=== PATIENT | male | born 1985 ===

== ENCOUNTER 2021-06-10 22:56 | Emergency (ER) | payer BC, OTHER ==
[~2021-06-10] VITALS: Ht 182.9 cm; Wt 108.9 kg
[~2021-06-10 22:56] MED LIST: CYCL10TA9 PO; SULF-222 PO; TRAM50TA2 PO
--- NOTE | 2021-06-10 23:11 | ED General ---
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 HE FEELS LIKE HE CAN'T TAKE A DEEP BREATH STATES THIS HAS BEEN GOING ON FOR ABOUT A YEAR, AND IS WORSE WITH EXERCISE/ACTIV ITY AND GRADUALLY GETTING WORSE OVER TIME STATES IT HAS BEEN WORSE FOR THE LAST WEEK, AND WORSE TONIGHT--STATES "I THINK I GOT MYSELF WORKED UP ABOUT IT TONIGHT" NO CHEST PAIN OR PAIN WITH BREATHING NO COUGH NO FEVER/SWEATS/CHILLS NO SWELLING IN LEGS/FEET OR PAIN IN CALVES NO URI SYMPTOMS NO SORE THROAT NO LOSS OF TASTE OR SMELL NO GI SYMPTOMS HAS BEEN EATING AND DRINKING NORMALLY, AND VOIDING A NORMAL AMOUNT PT 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 ALSO HAS SAME WITH RIGHT ARM. PT STATES THIS HAS ALSO BEEN GOING ON FOR ABOUT A YEAR WELL--STATES IT HAPPENS "IF MY CIRCULATION IN MY ARM GETS BLOCKED FOR SOME REASON" ( SUCH SLEEPING ON HIS ARM, ETC. ) PT HAS NOT SOUGHT CARE AT ANY TIME FOR THESE PROBLEMS PT HAS NOT HAD COVID-19 VACCINE THERE HAVE BEEN MULTIPLE COVID-19 CASES AT [employer], BUT PT IS UNAWARE IF HE HAS ACTUALLY COME IN CONTACT WITH ANYONE WHO HAS BEEN ILL. PT DOES STATE THAT ALL DEPARTMENTS REPORT TO HIM DENIES ANY CHRONIC ILLNESSES, BUT NEVER GOES TO THE DR. NO RESPIRATORY PROBLEMS PT IS NON SMOKER ADDITIONALLY, PT GOT PULLED OVER BY THE POLICE ON HIS WAY HERE, WHICH HAS INCREASED HIS ANXIETY PCP: NONE Allergies and Home Medications Allergies Coded Allergies: No Known Drug Allergies (Unverified , 08/19/14) Home Medications Cyclobenzaprine Hcl 10 Mg Tablet, 1 EACH PO PRN PRN for PAIN, (Reported) Tramadol Hcl 50 Mg Tablet, 50 MG PO PRN PRN for PAIN, (Reported) Trimethoprim/Sulfamethoxazole 1 Ea Tablet, 1 EA PO BID, (Reported) Trimethoprim/Sulfamethoxazole 1 Ea Tablet, 2 EA PO BID Higher dose prescribed due to severity of infection Prescribed by: MARISA SORTO on 08/19/14 1110 Patient Home Medication List Home Medication List Reviewed: Yes Review of Systems Review of Systems Constitutional: No chills, No diaphoresis, No fever, No malaise, No weakness EENTM: no symptoms reported Respiratory: see HPI Cardiovascular: no symptoms reported Gastrointestinal: no symptoms reported Genitourinary: no symptoms reported Musculoskeletal: see HPI Skin: no symptoms reported Psychiatric/Neurological: Anxiety Hematologic/Lymphatic: No Symptoms Reported Immunological/Allergic: no symptoms reported Past Riucsej-Fwwjai-Nuzrwz Hx Patient Social History Tobacco Use?: No Substance use?: No Alcohol Use?: Yes Alcohol Frequency: Once in a while Past Medical History Surgeries: Yes Tonsillectomy Respiratory: No Cardiac: No Neurological: No Genitourinary: No Gastrointestinal: No Musculoskeletal: No Endocrine: No HEENT: Yes (S/P TONSILLECTOMY) Tonsilitis Cancer: No Psychosocial: No Integumentary: No Blood Disorders: No Family Medical History Patient reports no known family medical history. Physical Exam Vital Signs Vital Signs - First Documented 06/10/21 23:50 Temp 37.0 Pulse 90 Resp 22 B/P (MAP) 116/94 (101) Pulse Ox 99 O2 Delivery Room Air Capillary Refill : Height, Weight, BMI Height: 6'" Weight: 200lbs. oz. [id number]; BMI Method: General Appearance: No Apparent Distress, WD/WN, Anxious, Other (PT FREQUENTLY TAKING VERY DEEP BREATHS/HYPERVENTILATING. 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 Norm as Tested Skin: Normal Color (PT IS ), Warm/Dry; No Rash Progress/Results/Core Measures Suspected Sepsis SIRS Temperature: Pulse: Respiratory Rate: Laboratory Tests 06/11/21 00:12: White Blood Count 5.7 Blood Pressure / Mean: Laboratory Tests 06/11/21 00:12: Creatinine 0.90, INR Comment 1.0, Platelet Count 207, Total Bilirubin 0.4 Results/Orders Lab Results Laboratory Tests Test 06/10/21 22:35 06/10/21 23:44 06/11/21 00:12 Range/Units Influenza Type A (RT-PCR) Not Detected Not Detecte Influenza Type B (RT-PCR) Not Detected Not Detecte SARS-CoV-2 RNA (RT-PCR) Not Detected Not Detecte Urine Color YELLOW Urine Clarity CLEAR Urine pH 6.5 5-9 Urine Specific [place] 1.020 1.016-1.022 Urine Protein NEGATIVE NEGATIVE Urine Glucose (UA) NEGATIVE NEGATIVE Urine Ketones NEGATIVE NEGATIVE Urine Nitrite NEGATIVE NEGATIVE Urine Bilirubin NEGATIVE NEGATIVE Urine Urobilinogen 0.2 < = 1.0 MG/DL Urine Leukocyte Esterase NEGATIVE NEGATIVE Urine RBC (Auto) NEGATIVE NEGATIVE Urine RBC NONE /HPF Urine WBC NONE /HPF Urine Squamous Epithelial Cells RARE /HPF Urine Crystals NONE /LPF Urine Bacteria NEGATIVE /HPF Urine Casts NONE /LPF Urine Mucus SMALL H /LPF Urine Culture Indicated NO Urine Opiates Screen NEGATIVE NEGATIVE Urine Oxycodone Screen NEGATIVE NEGATIVE Urine Methadone Screen NEGATIVE NEGATIVE Urine Propoxyphene Screen NEGATIVE NEGATIVE Urine Barbiturates Screen NEGATIVE NEGATIVE Ur Tricyclic Antidepressants Screen NEGATIVE NEGATIVE Urine Phencyclidine Screen NEGATIVE NEGATIVE Urine Amphetamines Screen NEGATIVE NEGATIVE Urine Methamphetamines Screen NEGATIVE NEGATIVE Urine Benzodiazepines Screen NEGATIVE NEGATIVE Urine Cocaine Screen NEGATIVE NEGATIVE Urine Cannabinoids Screen NEGATIVE NEGATIVE White Blood Count 5.7 4.3-11.0 10^3/uL Red Blood Count 5.03 4.30-5.52 10^6/uL Hemoglobin 16.1 13.3-17.7 g/dL Hematocrit 46 40-54 % Mean Corpuscular Volume 91 80-99 fL Mean Corpuscular Hemoglobin 32 25-34 pg Mean Corpuscular Hemoglobin Concent 35 32-36 g/dL Red Cell Distribution Width 12.8 10.0-14.5 % Platelet Count 207 130-400 10^3/uL Mean Platelet Volume 9.9 9.0-12.2 fL Immature Granulocyte % (Auto) 0 % Neutrophils (%) (Auto) 45 42-75 % Lymphocytes (%) (Auto) 34 12-44 % Monocytes (%) (Auto) 16 H 0-12 % Eosinophils (%) (Auto) 3 0-10 % Basophils (%) (Auto) 1 0-10 % Neutrophils # (Auto) 2.6 1.8-7.8 10^3/uL Lymphocytes # (Auto) 1.9 1.0-4.0 10^3/uL Monocytes # (Auto) 0.9 0.0-1.0 10^3/uL Eosinophils # (Auto) 0.2 0.0-0.3 10^3/uL Basophils # (Auto) 0.1 0.0-0.1 10^3/uL Immature Granulocyte # (Auto) 0.0 0.0-0.1 10^3/uL Prothrombin Time 13.6 12.2-14.7 SEC INR Comment 1.0 0.8-1.4 Activated Partial Thromboplast Time 29 24-35 SEC Sodium Level 140 135-145 MMOL/L Potassium Level 3.4 L 3.6-5.0 MMOL/L Chloride Level 107 98-107 MMOL/L Carbon Dioxide Level 21 21-32 MMOL/L Anion Gap 12 5-14 MMOL/L Blood Urea Nitrogen 19 H 7-18 MG/DL Creatinine 0.90 0.60-1.30 MG/DL Estimat Glomerular Filtration Rate 97 BUN/Creatinine Ratio 21 Glucose Level 92 70-105 MG/DL Calcium Level 9.5 8.5-10.1 MG/DL Corrected Calcium 9.2 8.5-10.1 MG/DL Magnesium Level 1.8 1.6-2.4 MG/DL Total Bilirubin 0.4 0.1-1.0 MG/DL Aspartate Amino Transf (AST/SGOT) 22 5-34 U/L Alanine Aminotransferase (ALT/SGPT) 30 0-55 U/L Alkaline Phosphatase 86 40-136 U/L Total Creatine Kinase 166 30-200 U/L Creatine Kinase MB 1.2 <6.6 NG/ML Troponin I < 0.028 <0.028 NG/ML B-Type Natriuretic Peptide < 10.0 <100.0 PG/ML Total Protein 7.6 6.4-8.2 GM/DL Albumin 4.4 3.2-4.5 GM/DL TSH [place] Testing 1.17 0.35-4.94 UIU/ML My Orders Orders - DESTIN HERNANDEZ DO Covid 19 Inhouse Test (06/10/21 23:10) Influenza A And B By Pcr (06/10/21 23:10) Ed Iv/Invasive Line Start (06/10/21 23:15) Ekg Tracing (06/10/21 23:15) Monitor-Rhythm Ecg Trace Only (06/10/21 23:15) BNP (06/10/21 23:15) Cbc With Automated Diff (06/10/21 23:15) Comprehensive Metabolic Panel (06/10/21 23:15) Creatine Kinase (06/10/21 23:15) Creatine Kinase Mb (06/10/21 23:15) Drug Screen Stat (Urine) (06/10/21 23:15) Magnesium (06/10/21:15) Protime With Inr (06/10/21 23:15) Partial Thromboplastin Time (06/10/21 23:15) Thyroid Analyzer (06/10/21 23:15) Ua Culture If Indicated (06/10/21:15) Troponin I (06/10/21 23:15) Chest 1 View, Ap/Pa Only (06/11/21 00:01) Ct Angio Chest W (06/11/21 00:55) Iohexol Injection (Omnipaque 350 Mg/Ml 1 (06/11/21 01:45) Received Contrast (Hold Metformin- Contr (06/11/21 01:45) Ns (Ivpb) (Sodium Chloride 0.9% Ivpb Bag (06/11/21 01:45) Medications Given in ED Current Medications Medications Dose Ordered Sig/Tai Route Start Time Stop Time Status Last Admin Dose Admin Iohexol 100 ml ONCE ONCE IV 06/11/21 01:45 06/11/21 01:48 DC 06/11/21 01:48 100 ML Sodium Chloride 80 ml ONCE ONCE IV 06/11/21 01:45 06/11/21 01:48 DC 06/11/21 01:48 80 ML Vital Signs/I&O 06/10/21 23:50 Temp 37.0 Pulse 90 Resp 22 B/P (MAP) 116/94 (101) Pulse Ox 99 O2 Delivery Room Air Capillary Refill : Progress Note : Progress Note PLACED IN ISOLATION ROOM PPE WORN AT ALL TIMES COVID-19 TESTING PERFORMED. PT EVENTUALLY CALMER, AND NO LONGER HYPERVENTILATING AND RESPIRATIONS ARE EVEN AN UNLABORED NO COUGH NO FEVER NO HYPOXIA--O2 SATS 100% ON ROOM AIR. NO ABNORMAL VITALS. ECG Initial ECG Impression Date: Jun 10, 2021 Initial ECG Impression Time: 23:20 Initial ECG Rate: 85 Initial ECG Rhythm: Normal Sinus Initial ECG Impression: Normal Diagnostic Imaging Comments CXR--BILATERAL INFILTRATES ? PENDING RADIOLOGIST REVIEW CT CHEST ANGIOGRAM--NO P.E. OR ACUTE PROCESS, PER [facility] VIA FAX [id number] Reviewed: Reviewed by Me Departure Impression Primary Impression: SUBJECTIVE DYSPNEA Additional Impression: Anxiety Disposition: HOME, SELF-CARE Condition: Stable Departure-Patient Inst. Referrals: NO,LOCAL PHYSICIAN (PCP/Family) Primary Care Physician Patient Instructions: Anxiety, Adult (DC), Shortness of Breath (Dyspnea) (DC) Add. Discharge Instructions: FOLLOW UP WITH OF CHOICE NEXT WEEK FOR FURTHER CARE RETURN TO ER IF SYMPTOMS WORSEN Work/School Note: Local Medical Staff Listing DESTIN HERNANDEZ DO Jun 10, 2021 23:11
[2021-06-10 23:51] LABS: BILIRUBIN,URINE NEGATIVE (NEGATIVE); CLARITY,URINE CLEAR; COLOR,URINE YELLOW; GLUCOSE, URINE (UA) NEGATIVE (NEGATIVE); KETONES,URINE NEGATIVE (NEGATIVE); LEUKOCYTE ESTERASE ,URINE NEGATIVE (NEGATIVE); NITRITE,URINE NEGATIVE (NEGATIVE); PH,URINE 6.5 (5-9); PROTEIN,URINE NEGATIVE (NEGATIVE)
[2021-06-11 00:05] LABS: BACTERIA,URINE NEGATIVE /HPF; SQUAMOUS EPITHELIAL CELL,UR RARE /HPF
[2021-06-11 00:06] LABS: AMPHETAMINE SCREEN, URINE NEGATIVE (NEGATIVE); BARBITURATE SCREEN URINE NEGATIVE (NEGATIVE); BENZODIAZEPINES SCREEN URINE NEGATIVE (NEGATIVE); CANNABINOID SCREEN, URINE NEGATIVE (NEGATIVE); COCAINE SCREEN URINE NEGATIVE (NEGATIVE); METHADONE STAT NEGATIVE (NEGATIVE); METHAMPHETAMINE SCREEN URINE S NEGATIVE (NEGATIVE); OPIATE SCREEN URINE NEGATIVE (NEGATIVE); OXYCODONE STAT NEGATIVE (NEGATIVE); PROPOXYPHENE STAT NEGATIVE (NEGATIVE); TRICYCLIC ANTIDEPRESSANTS SCRE NEGATIVE (NEGATIVE)
[2021-06-11 00:27] LABS: BASOPHILS # (AUTO) 0.1 10^3/uL (0.0-0.1); BASOPHILS % (AUTO) 1 % (0-10); EOSINOPHILS # (AUTO) 0.2 10^3/uL (0.0-0.3); EOSINOPHILS % (AUTO) 3 % (0-10); HEMATOCRIT 46 % (40-54); HEMOGLOBIN 16.1 g/dL (13.3-17.7); LYMPHOCYTES # (AUTO) 1.9 10^3/uL (1.0-4.0); LYMPHOCYTES % (AUTO) 34 % (12-44); MEAN CORPUSCULAR HEMOGLOBIN 32 pg (25-34); MEAN CORPUSCULAR HGB CONC 35 g/dL (32-36); MEAN CORPUSCULAR VOLUME 91 fL (80-99); MEAN PLATELET VOLUME 9.9 fL (9.0-12.2); MONOCYTES # (AUTO) 0.9 10^3/uL (0.0-1.0); MONOCYTES % (AUTO) 16 % (0-12); NEUTROPHILS # (AUTO) 2.6 10^3/uL (1.8-7.8); NEUTROPHILS % (AUTO) 45 % (42-75); PLATELET COUNT 207 10^3/uL (130-400); WHITE BLOOD COUNT 5.7 10^3/uL (4.3-11.0)
[2021-06-11 00:44] LABS: ALBUMIN 4.4 GM/DL (3.2-4.5)
[2021-06-11 00:45] LABS: CHLORIDE 107 MMOL/L (98-107); POTASSIUM 3.4 MMOL/L (3.6-5.0); SODIUM 140 MMOL/L (135-145)
[2021-06-11 00:46] LABS: CALCIUM 9.5 MG/DL (8.5-10.1)
[2021-06-11 00:47] LABS: GLUCOSE 92 MG/DL (70-105); PROTHROMBIN TIME PATIENT 13.6 SEC (12.2-14.7); TOTAL PROTEIN 7.6 GM/DL (6.4-8.2)
[2021-06-11 00:48] LABS: CARBON DIOXIDE 21 MMOL/L (21-32)
[2021-06-11 00:49] LABS: BILIRUBIN,TOTAL 0.4 MG/DL (0.1-1.0)
[2021-06-11 00:50] LABS: ALKALINE PHOSPHATASE 86 U/L (40-136)
[2021-06-11 00:51] LABS: GFR ESTIMATED 97
[2021-06-11 00:52] LABS: BUN/CREATININE RATIO 21
[2021-06-11 00:53] LABS: ALANINE AMINOTRANSFERASE 30 U/L (0-55)
[2021-06-11 00:54] LABS: MAGNESIUM 1.8 MG/DL (1.6-2.4)
[2021-06-11 00:55] LABS: CREATINE KINASE 166 U/L (30-200)
[2021-06-11 01:02] LABS: CREATINE KINASE MB 1.2 NG/ML (<6.6)
[2021-06-11 01:15] LABS: TSH (THYROID ANALYZER) 1.17 UIU/ML (0.35-4.94)
[2021-06-11] MEDS ORDERED: HOLD METFORMIN - RECEIVED CONTRAST 20 ML VIAL IV SCH (01:45)
[2021-06-11] MEDS ORDERED: IOHEXOL 350 MG/ML 100 ML (OMNIPAQUE 350) VIAL IV ONE (01:45)
[2021-06-11] MEDS ORDERED: NS 100 ML (IVPB) BAG IV ONE (01:45)
[2021-06-11 02:13] VITALS: BP 113/57
--- NOTE | 2021-06-11 06:38 | Diagnostic Imaging Report ---
PROCEDURE: CT angiography of the chest with contrast. TECHNIQUE: Multiple contiguous axial images were obtained through the chest after uneventful bolus administration of intravenous contrast. 3D reconstructed CTA MIP acquisitions were also performed. Auto Exposure Controls were utilized during the CT exam to meet ALARA standards for radiation dose reduction. INDICATION: Dyspnea. No prior studies are available for comparison. Evaluation of the pulmonary arterial system is without evidence of thromboembolism. No filling defects are seen within central, lobar or segmental branches. Thoracic aorta is normal caliber. There is no dissection. No pericardial or pleural fluid is identified. No pulmonary infiltrates, nodules or masses are identified. Upper abdomen is unremarkable. IMPRESSION: No evidence of pulmonary embolism or thoracic aortic dissection. Dictated by: Dictated on workstation # [id number]
--- NOTE | 2021-06-11 06:46 | Diagnostic Imaging Report ---
INDICATION: Dyspnea. TIME OF EXAM: 12:28 AM Heart size is normal. Lungs appear to be clear. No infiltrates are seen. There is no effusion or pneumothorax. IMPRESSION: No acute cardiopulmonary process is detected. Dictated by: Dictated on workstation # [id number]
== END 2021-06-11 02:13 | disposition home or self-care (01) ==
LOC: EDUNIT# 22:56 → ER 22:57
DX: R06.00 Dyspnea, unspecified (principal); F41.9 Anxiety disorder, unspecified; Z20.822 Contact with and (suspected) exposure to COVID-19
CPT/HCPCS: 36415; 71045; 71275; 80053; 80306; 81000; 82550; 82553; 83735; 83880; 84443; 84484; 85025; 85610; 85730; 87636; 93005; 93041